=== PATIENT | male | born 1970 | race Caucasian/White ===

== ENCOUNTER 2025-03-19 22:09 | Inpatient (IN) | payer MEDICAID ==
[~2025-03-19] VITALS: Ht 185.4 cm; Wt 67.7 kg
[2025-03-19 22:56] LABS: MEAN PLATELET VOLUME 8.5 FL (7.4-10.4); RED CELL DISTRIBUTION WIDTH 13.4 % (11.5-14.5)
--- NOTE | 2025-03-19 23:01 | RADIOLOGY REPORT ---
CHEST RADIOGRAPH Indication: sepsis Technique: 1 view Comparison: None FINDINGS: Lines and Tubes: None Lungs: No focal consolidation. Pleura: No effusion or pneumothorax. Cardiomediastinal contours: Unremarkable. Other: No acute osseous abnormality. IMPRESSION: 1. No acute cardiopulmonary abnormality.
[2025-03-19 23:05] LABS: CREATININE 1.07 MG/DL (0.60-1.10); TOTAL CARBON DIOXIDE 33.2 MMOL/L (24-32); eCRCL 76 ML/MIN; eGFR 72 ML/MIN
[2025-03-20] VITALS (8 sets, daily range): BP systolic 147–170; BP diastolic 83–106; PULSE 60–88; RESP 14–18; TEMP 97.1–99.1; O2SAT 94–97
--- NOTE | 2025-03-20 04:30 | Physician Documentation ---
History of Present Illness ~ Chief Complaint: Arm Pain Stated Complaint: MULTIPLE MEDICAL COMPLAINTS Time Seen by MD: 03:55 Primary Medical Doctor: LISSA IN [facility] HPI 54-year-old male presenting with right hand and wrist pain and redness. He st ates that it started hurting 2-3 days ago. He is homeless and lives [address]. He is also an IV drug user and states that he often injects into his right wrist and arm. Reports that the pain is worsening. He has also had some subjective fevers and chills. Denies any nausea, vomiting or any other associated symptoms. Medication Reconciliation Allergies: Coded Allergies: No Known Allergies (Unverified , 03/19/25) Miscellaneous Medications Home Med List (No Home Medications), (Reported) Review of Systems All Other Systems at this time: Reviewed and Negative Physical Exam Vital Signs: Temperature: 98.3, Source: Oral, Heart Rate: 99, Respiratory Rate: 18, BP: 154/90, Pulse Oximetry: 97, Weight: 67.700 Oxygen Flow Rate: 0 Physical Exam I have reviewed the triage vitals. CONST: Well developed and well nourished. In no acute distress HENT: Head Atraumatic EYES: Pupils are equal, round and reactive to light. Normal conjunctiva NECK: Normal range of motion. Supple. CARDIO: Normal rate and regular rhythm. No murmurs, rubs, or gallops. S1, S2. PULM/CHEST: No respiratory distress. Lungs clear to auscultation. No wheeze ABD: Soft and nontender. Nondistended. Bowel sounds normal. No guarding. : Exam deferred MSK: Right hand and wrist with erythema ranging from the hand down to the distal forearm. This area is tender to palpation. NEURO: Alert and oriented to person, place and time. Moving all extremities SKIN: Warm and dry. PSYCH: Normal mood and affect. Good eye contact. Progress Results/Orders Results/Orders Medications Received in ER Medications (Trade) Dose Ordered Sig/Maggie Route PRN Reason Start Time Stop Time Status Last Admin Dose Admin (morphine inj.) 4 mg ONCE ONCE IV 03/20/25 04:25 03/20/25 04:34 DC 03/20/25 05:09 4 MG (Zofran 4mg/2ml vial) 4 mg ONCE ONCE IV 03/20/25 04:25 03/20/25 04:34 DC 03/20/25 05:10 4 MG Sodium Chloride 1,000 ml @ 1,000 mls/hr ONCE ONCE IV 03/20/25 04:25 03/20/25 05:24 DC 03/20/25 05:06 1,000 MLS/HR Ceftriaxone Sodium/Dextrose 50 ml @ 100 mls/hr ONCE ONCE IV 03/20/25 04:25 03/20/25 04:54 DC 03/20/25 05:06 100 MLS/HR Vital Signs 03/19/25 03/20/25 03/20/25 03/20/25 22:28 02:06 05:56 06:36 Temp 98.8 98.3 Pulse 109 99 62 Resp 18 18 16 B/P (MAP) 126/96 154/90 (111) 143/87 (105) Pulse Ox 98 97 O2 Flow Rate 0 0 Laboratory Tests Test 03/19/25 22:47 03/20/25 06:45 White Blood Count 12.7 H Red Blood Count 4.76 Hemoglobin 14.0 Hematocrit 41.4 L Mean Corpuscular Volume 87.0 Mean Corpuscular Hemoglobin 29.4 Mean Corpuscular Hemoglobin Concent 33.8 Red Cell Distribution Width 13.4 Platelet Count 253 Mean Platelet Volume 8.5 Neutrophils (%) (Auto) 68.7 Lymphocytes (%) (Auto) 18.4 L Monocytes (%) (Auto) 8.0 Eosinophils (%) (Auto) 4.2 Basophils (%) (Auto) 0.7 Neutrophils # (Auto) 8.7 H Lymphocytes # (Auto) 2.3 Monocytes # (Auto) 1.0 H Eosinophils # (Auto) 0.5 Basophils # (Auto) 0.1 CBC Comment Sodium Level 138 Potassium Level 4.3 Chloride Level 101 Carbon Dioxide Level 33.2 H Anion Gap 4 L Blood Urea Nitrogen 21 H Creatinine 1.07 Estimated GFR/1.73 m2 72 BUN/Creatinine Ratio 19.6 Glucose Level 95 Lactic Acid Level 1.1 Calcium Level 9.1 Albumin 3.7 Procalcitonin < 0.05 Chemistry Comments Urine Specimen Description Non-specified Urine Color Yellow Urine Clarity Clear Urine pH 6.0 Urine Specific [place] 1.025 Urine Protein Trace Urine Glucose (UA) Negative Urine Ketones Negative Urine Occult Blood Negative Urine Nitrite Negative Urine Bilirubin Negative Urine Urobilinogen 1.0 Urine Leukocyte Esterase Negative Urine RBC 0-2 Urine WBC 0-4 Urine Squamous Epithelial Cells None seen Urine Bacteria None seen Urine Mucus Few Urine Culture Indicated Not ind Volume Urine Centrifuged 10 ml Urine Comment Microbiology Date/Time Source Procedure Growth Status 03/19/25 23:10 Blood Arm Left Blood Culture - Preliminary NEGATIVE (LESS THAN 24 HOURS) Resulted Medical Decision Making Findings 54-year-old male who admits to IV drug abuse involving his right upper extremity who presents with cellulitis of the hand. He has got a leukocytosis. He was started on vancomycin in the hospitalist kindly agreed to admit the patient. Departure Disposition: ADMITTED INPATIENT Admission Level of Care: Med/Surg Impression: Primary Impression: Cellulitis of right hand Additional Impression: Leukocytosis Condition: Stable Referrals: NO PRIMARY CARE PROVIDER (PCP) Signature Scribe Signature: . Attestation: . DRE HERRERA MD Mar 20, 2025 04:30 KESHIA ESPINOSA MD Mar 20, 2025 07:51
--- NOTE | 2025-03-20 04:53 | RADIOLOGY REPORT ---
CLINICAL INDICATION: right wrist/hand swelling TECHNIQUE: 2 views right wrist, 2 views right hand DI WRIST,LIMITED (AP/LAT), DI HAND,LIMITED (AP/LAT) Comparison: None FINDINGS/IMPRESSION: : No acute fracture or joint malalignment. Normal osseous mineralization. Ulnar positive variance with mild sclerosis of the proximal lunate subarticular surface, compatible with ulnar impaction. 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 Healed 5th metacarpa l neck deformity. Mild soft tissue prominence about the wrist.
[2025-03-20] MEDS: normal saline 1000ml 1,000 ML IV ONE (05:06)
[2025-03-20] MEDS: CefTRIAXone 2gm/D5W 50ml BAG 50 ML IV ONE (05:06)
[2025-03-20] MEDS: morphine 4 MG/ML inj SYRINge IV ONE (05:09)
[2025-03-20] MEDS: ondansetron/PF 4mg/2ml inj IV ONE (05:10)
[2025-03-20] MEDS ORDERED: CefTRIAXone 2gm/D5W 50ml BAG 50 ML IV ONE (05:15)
[2025-03-20] MEDS ORDERED: NO HOME MEDS (06:44)
[2025-03-20 06:56] LABS: LEUKOCYTE ESTERASE ,URINE NEGATIVE (Neg); NITRITES, URINE NEGATIVE (Neg); OCCULT BLOOD,URINE NEGATIVE (Neg)
[2025-03-20 06:57] LABS: UA COLLECTION TYPE NON-SPECIFIED
[2025-03-20 07:01] LABS: MUCUS STRANDS FEW /LPF (Neg); SQUAMOUS EPITHELIAL CELL,UR NONE SEEN /LPF (FEW)
[2025-03-20] MEDS ORDERED: potassium Cl 20 mEq SR tablet PO PRN ×2 (07:50)
[2025-03-20] MEDS ORDERED: magnesium sulf-water 2g/50mL 50 ML IV PRN (07:50)
[2025-03-20] MEDS ORDERED: vancomycin inj 1,000 MG in normal saline 250ml IV soln 250 ML IV ONE (07:50)
[2025-03-20] MEDS ORDERED: potassium Cl 40MEQ/1/2NS 520ml 520 ML IV PRN (07:50)
[2025-03-20] MEDS: PERFLUTREN PROTEIN-A MICROSPHR (Optison) 0.22 MG/ML 3ML VIAL IV ONE (07:50)
[2025-03-20] MEDS ORDERED: ondansetron/PF 4mg/2ml inj IV PRN (07:50)
[2025-03-20] MEDS ORDERED: mag hydrox/Alum hydrox/simeth 30ml oral suspension PO PRN (07:50)
[2025-03-20] MEDS ORDERED: magnesium sulf-water 4G/100mL 100 ML IV PRN (07:50)
[2025-03-20] MEDS ORDERED: CefTRIAXone/D5W-Rocephin 1gm 50 ML IV ONE (07:50)
[2025-03-20] MEDS: K and/or MAG REPLACEMENT MC SCH (08:00)
[2025-03-20] MEDS: ipratropium/albuterol 3ml nebule NEB PRN (08:30)
[2025-03-20] MEDS: normal saline 1000ml 1,000 ML IV SCH (10:16)
[2025-03-20] MEDS: vancomycin/NS 1 GM ADD-VANTAGE 250 ML IV SCH ×2 (10:16→12:57)
[2025-03-20] MEDS: docusate sod 100mg capsule PO SCH (10:17)
[2025-03-20] MEDS: nicotine 21mg patch - 24 hr TD ONE (10:39)
[2025-03-20] MEDS ORDERED: SULF1TAB45 PO (14:27)
[2025-03-20] MEDS ORDERED: ATOR40TA72 (14:27)
[2025-03-20] MEDS ORDERED: MUPI22OI30 TOP (14:27)
[2025-03-20] MEDS ORDERED: ALBU10.7 (14:27)
[2025-03-20] MEDS ORDERED: LOSA25TA41 PO (14:27)
[2025-03-20] MEDS ORDERED: METH-603 PO (14:32)
[2025-03-20] MEDS: methadone 10mg tablet PO SCH (14:39)
[2025-03-20] MEDS: hydrALAZINE 20mg/ml inj. IV PRN (17:51)
--- NOTE | 2025-03-20 18:12 | HISTORY AND PHYSICAL ---
History & Physical Providers to CC ~ History of Present Illness Reason for Admit\Complaint: Cellulitis of the right hand/ IV drug use disorder History of Present Illness This is a 54-year-old male who presents to ED with redness and pain of his right hand and wrist times. Three days the patient is an IV methamphetamine user and often injects in his right wrist and arm. The patient has states he is also withdrawing from fentanyl for which he smokes the patient has a mildly elevated white blood cell count is echocardiogram was negative for any valvular vegetations. The patient is admitted to surgery floor. Allergies: Coded Allergies: No Known Allergies (Unverified , 03/19/25) Home Medications Home Medications Active Reported Dolophine* (Methadone HCl) 10 Mg Tablet 70 Mg PO DAILY Airsupra 90-80 Mcg Inhaler (Albuterol Sulfate/Budesonide) 90 Mcg-80 Mcg/Actuation Hfa.aer.ad Septra Ds Tab (Trimethoprim/Sulfamethoxazole) 800 Mg/160 Mg Tablet 1 Tab PO BID Bactroban* (Mupirocin) 22 Gm Tube 1 Applic TOP TID Atorvastatin Calcium 40 Mg Tablet Losartan Potassium 25 Mg Tablet 1 Tab PO DAILY No Home Medications (Home Med List) Each Past Medical History Past Medical History COPD, hepatitis-C Past Surgical History Surgical History Comment No prior surgeries Family History Family History: FH: heart disease MOTHER, , Age: 49, Cause: Emphysema lung Past Social History Social History Comment Smokes a pack of cigarettes a day, does not drink alcohol, injects methamphetamines, and smokes fentanyl ROS ROS Except for positives in the HPI the rest of the 14 point review systems is negative Exam Vitals: Vital Signs Date Time Temp Pulse Resp B/P (MAP) Pulse Ox O2 Delivery O2 Flow Rate FiO2 03/20/25 17:51 75 03/20/25 17:44 170/106 (127) 03/20/25 13:03 16 Room Air 03/20/25 11:00 97.1 97 03/20/25 10:51 0 03/20/25 08:37 21 General: Gen. No acute distress alert and oriented 4 Lungs clear to ascultation bilaterally, no wheezes rales or rhonchi appreciated Heart normal sinus rhythm no murmurs rubs or clicks noted Abdomen soft nontender bowel sounds are normoactive Lower extremities no clubbing cyanosis, nor edema appreciated bilaterally Skin mild erythema and edema to the right hand and wrist was mild streaking proximally and a linear fashion Diagnostic Data Last Recorded Lab Results: 03/19/25224603/19/252246 Advance Care Planning Advanced Care plannin - 30 Minutes Problems: (1) Cellulitis of right hand Status: Acute Additional Plan # cellulitis of the right upper extremity # IV methamphetamine use disorder IV Rocephin IV vancomycin No imaging of the upper extremities ordered other than x-ray of the hand and wrist since her is a very low likelihood of an abscess or osteomyelitis. Blood cultures are ordered Substance use navigator Narcisa Sair consult is ordered PRN p.o. lorazepam # fentanyl use disorder Continue methadone Substance use navigator Narcisa Sair consult is ordered # tobacco use disorder Nicotine patch is ordered We will talk about smoking cessation tomorrow # DVT prophylaxis SCDs SQ Lovenox I spent a total of 18 minutes on reviewing various resuscitative measures/ ACP with the patient at the time of admission. The patient has decided on a full code status. Date of Service: Mar 20, 2025 Billing Provider: JERRY PRIETO DO Common Visit Codes: 55601-WYVBXRP INP/OBS CARE (HIGH) Secondary Visit Codes: 25721-VMDHQPVI CARE PLAN 30 MINUTES JERRY PRIETO DO Mar 20, 2025 18:12
[2025-03-20] MEDS: HYDROmorphone inj. 0.5 MG/0.5 ML DISP.SYRIN IV PRN (19:00)
[2025-03-20] MEDS: enoxaparin 40mg/0.4ml syringe SQ SCH (19:01)
[2025-03-21] VITALS (8 sets, daily range): BP systolic 144–193; BP diastolic 83–109; PULSE 60–91; RESP 14–18; TEMP 97.6–98.7; O2SAT 96–98
[2025-03-21] MEDS: haloperidol lactate 5mg/ml inj IM ONE (01:58)
[2025-03-21 05:34] LABS: MEAN PLATELET VOLUME 9.2 FL (7.4-10.4); RED CELL DISTRIBUTION WIDTH 13.6 % (11.5-14.5)
[2025-03-21 06:01] LABS: CREATININE 0.65 MG/DL (0.60-1.10); TOTAL CARBON DIOXIDE 22.1 MMOL/L (24-32); eCRCL 124 ML/MIN; eGFR > 90 ML/MIN
[2025-03-21] MEDS: methadone 10mg tablet PO SCH (07:07)
[2025-03-21] MEDS: nicotine 21mg patch - 24 hr TD SCH (07:08)
[2025-03-21] MEDS: CefTRIAXone/D5W-Rocephin 1gm 50 ML IV SCH (07:08)
--- NOTE | 2025-03-21 09:46 | CARDIOLOGY REPORT ---
APPROVED REPORT EXAM: Comprehensive 2D, Doppler, and color-flow Echocardiogram. Patient Location: 349B Blood Pressure: 169/110 mmHg Heart Rate: 90 bpm Rhythm: NSR Indications ENDOCARDITIS MRSA HYPERTENSION EXTRUSION BENDER: None. PRIOR ECHOCARDIOGRAM: None. 2D Dimensions RVDd 3.2 cm IVSd 0.8 (0.7-1.1cm) LVDd 5.1 cm PWd 0.9 (0.7-1.1cm) IVSs 1.3 (0.8-1.2cm) LVDs 3.4 (2.5-4.0cm) PWs 1.1 (0.8-1.2cm) LVOT Diameter 2.01 (1.8-2.4cm) LVEF(%) 60.0 (>50%) FS (%) 32.1 % SV 72.8 ml CO 6.0 L/min M-Mode Dimensions Left Atrium(MM) 3.15 (2.5-4.0cm) Aortic Root 3.44 (2.2-3.7cm) Aortic Cusp Exc 1.83 (1.5-2.0cm) Aortic Valve AoV Peak Manoj. 174.0 cm/s AoV VTI 34.3 cm AO Peak GR. 12.1 mmHg AO Mean GR. 6 mmHg LVOT VTI 22.16 cm LVOT Peak Manoj. 114.8 cm/s JAYDEN (VTI) 2.05 cm2 Mitral Valve MV E Velocity 68.4 cm/s MV Peak Gr. 2 mmHg MV A Velocity 96.2 cm/s MV PHT 72 ms E/A Ratio 0.7 MVA (PHT) 3.06 cm2 MV VMax77.8 cm/s LEFT VENTRICLE Normal LV size and wall thickness. Overall systolic function is normal. LVEF is 55-60%. RIGHT VENTRICLE RV is normal size and function. ATRIA The left atrium size is normal. The right atrium size is normal. AORTIC VALVE Trileaflet AV appears mildly sclerotic without stenosis. No insufficiency. MITRAL VALVE Mitral valve leaflets are mildly thickened without stenosis. No regurgitation. PULMONIC VALVE TV appears structurally normal with no regurgitation. GREAT VESSELS The aortic root is normal in size. PERICARDIUM Normal pericardium. No effusion. Other Information Study Quality: Adequate Conclusion Normal LV size and wall thickness. Overall systolic function is normal. LVEF is 55-60%. RV is normal size and function. The left atrium size is normal. Trileaflet AV appears mildly sclerotic without stenosis. No insufficiency. Mitral valve leaflets are mildly thickened without stenosis. No regurgitation. TV appears structurally normal with no regurgitation. Normal pericardium. No effusion.
[2025-03-21] MEDS ORDERED: haloperidol lactate 5mg/ml inj IM PRN (10:40)
--- NOTE | 2025-03-21 10:53 | PROGRESS NOTE ---
Daily Progress Note Providers to CC ~ Antibiotic Timeout Antibiotic Ordered?: Yes Subjective The patient's right hand is erythema and edema as well as a lymphangitis has improved. the patient's blood pressure is elevated part of this may be secondary to withdrawal from methamphetamines I have ordered PRN lorazepam the patient also got agitated last evening and was given IM Haldol Objective Vital Signs Date Time Temp Pulse Resp B/P (MAP) Pulse Ox O2 Delivery O2 Flow Rate FiO2 03/21/25 10:18 16 03/21/25 07:07 69 03/21/25 06:38 98.6 157/83 (107) 97 Room Air 03/20/25 20:00 0 21 Result Diagram: 03/21/258 03/21/258 Gen. No acute distress alert and oriented 4 Lungs clear to ascultation bilaterally, no wheezes rales or rhonchi appreciated Heart normal sinus rhythm no murmurs rubs or clicks noted Abdomen soft nontender bowel sounds are normoactive Lower extremities no clubbing cyanosis, nor edema appreciated bilaterally Skin mild erythema and edema to the right hand and wrist was mild streaking proximally and a linear fashion Problem\Assessment\Plan Problems/Diagnosis: (1) Cellulitis of right hand # cellulitis of the right upper extremity # IV methamphetamine use disorder IV Rocephin IV vancomycin No imaging of the upper extremities ordered other than x-ray of the hand and wrist since her is a very low likelihood of an abscess or osteomyelitis. Blood cultures are ordered Substance use navigator Narcisa Sair consult is ordered PRN p.o. lorazepam 03/21 erythema and edema is improving of the right hand The patient appears to be going through methamphetamine withdrawal was agitated last evening received IM Haldol and did well IM Haldol PRN and lorazepam PRN agitation # elevated blood pressure Likely multifactorial including agitation from methamphetamine withdrawal as well as possible underlining hypertension Trial of lorazepam On IV hydralazine PRN # fentanyl use disorder Continue methadone Substance use navigator Narcisa Sair consult is ordered # tobacco use disorder Nicotine patch is ordered We will talk about smoking cessation tomorrow # DVT prophylaxis SCDs SQ Lovenox Date of Service: Mar 21, 2025 Billing Provider: JERRY PRIETO DO Common Visit Codes: [id number] INP/OBS CARE(HIGH) JERRY PRIETO DO Mar 21, 2025 10:53
[2025-03-21] MEDS: VANCOMYCIN LEVEL IV ONE (22:30)
[2025-03-22 06:55] VITALS: BP 139/95; PULSE 79; RESP 16; TEMP 98; O2SAT 97
[2025-03-22] MEDS: methadone 10mg tablet PO SCH (07:42)
[2025-03-22 08:00] VITALS: RESP 16
[2025-03-22] MEDS ORDERED: CEFD300C3 PO (10:48)
[2025-03-22] MEDS ORDERED: ALBU10.7 INH (10:48)
[2025-03-22] MEDS ORDERED: NICO-687 TD (10:48)
--- NOTE | 2025-03-22 11:05 | DISCHARGE SUMMARY ---
Discharge Summary Providers to CC ~ Discharge Summary Admission Diagnosis: right uex cellulitis Hospital Course DATE OF ADMISSION: 03/20/2025 DATE OF DISCHARGE: 03/22/2025 Discharge Diagnosis\Comment: Cellulitis of the right hand, IV methamphetamines use disorder, fentanyl use disorder, tobacco use disorder, hypertension Operations\Procedures: None Consultants: None Complications: None Condition on DC: Stable New Medications: Cefdinir* (Cefdinir*) 300 Mg Capsule 1 CAP PO Q12H, #10 CAP Nicotine 21 MG Patch* (Habitrol 21 MG Patch*) 1 Each Patch.td24 1 PATCH TD DAILY, #28 PATCH Do not smoke while on a nicotine patch this can cause your blood pressure to markedly elevate and cause you to have a stroke Changed Medications: Albuterol Sulfate/Budesonide (Airsupra 90-80 Mcg Inhaler) 90 Mcg-80 Mcg/Actuation Hfa.aer.ad 2 PUFFS INH BID, #1 INHALER (Medication details modified) Continued Medications: Atorvastatin Calcium (Atorvastatin Calcium) 40 Mg Tablet Losartan Potassium (Losartan Potassium) 25 Mg Tablet 1 TAB PO DAILY Methadone Hcl* (Dolophine*) 10 Mg Tablet 70 MG PO DAILY, TAB NS Mupirocin* (Bactroban*) 22 Gm Tube 1 APPLIC TOP TID Discontinued Medications: Home Med List (No Home Medications) Each Sulfamethoxazole/Trimethoprim (Septra Ds Tab) 800 Mg/160 Mg Tablet 1 TAB PO BID Discharge Summary: I admitted Mr. Linares with the following HPI:This is a 54-year-old male who presents to ED with redness and pain of his right hand and wrist times. Three days the patient is an IV methamphetamine user and often injects in his right wrist and arm. The patient has states he is also withdrawing from fentanyl for which he smokes the patient has a mildly elevated white blood cell count is echocardiogram was negative for any valvular vegetations. The patient is admitted to surgery floor. The the patient is white blood cell count improved from 12,700-11,300 the patient was afebrile during hospitalization. The patient has cellulitis was essentially resolved on the morning of the and the patient was discharged with a prescription for cefdinir 300 mg b.i.d. for additional five days with recommendations to obtain a probiotic to avoid C difficile enterocolitis. The patient was given a nicotine patch during hospitalization and on the day discharge I spoke to the patient about Tobacco abuse-I spent 12 minutes discussing smoking cessation with the patient including the risk of continuing smoke: Lung cancer, stroke, heart attack, poor wound healing, risk of MRSA skin infections. The expense of smoking cigarettes and how cigarettes have been scientifically engineered to be as addictive as humanly possible. The patient was recommended not to smoke while on a nicotine patch as this could markedly raises blood pressure and you could have a stroke. The patient has underlining hypertension his blood pressure was markedly elevated on the IV hydralazine was given however this improved and by the morning of the his blood pressure was 139/95. The patient is to continues lisinopril the patient was agitated the previous is stay and methamphetamine withdrawal was highly likely a contributing factor to the patient's markedly elevated blood pressure. Patient states that he does have issues with breathing in his out of his inhaler on the morning of discharge the patient did have coarse breath sounds however his oxygen saturation was in the mid-to-high 90s on room air I did discharge the patient with the renewal of his airspura inhaler Gen. No acute distress alert and oriented 4 Lungs coarse breath sounds scattered in all listening [place]. Heart normal sinus rhythm no murmurs rubs or clicks noted Abdomen soft nontender bowel sounds are normoactive Lower extremities no clubbing cyanosis, nor edema appreciated bilaterally The patient felt ready to be discharged and was medically cleared to be discharged on 03/22/2025 The patient was seen and evaluated on day of discharge. Time spent on discharge 35 minutes *Problems/Diagnosis: (1) Cellulitis of right hand Status: Acute Total Time Spent on D/C: > 30 Minutes Date of Service: Mar 22, 2025 Billing Provider: JERRY PRIETO DO Common Visit Codes: 26798-IDX/OBS DISCH DAY >30min Secondary Visit Codes: 64550-[id number] CHNG SMOKING >10MIN JERRY PRIETO DO Mar 22, 2025 11:04
[2025-03-22 12:16] VITALS: BP 140/106; PULSE 69; RESP 16; TEMP 97.4; O2SAT 95
== END 2025-03-22 12:45 | disposition home or self-care (01) | DRG 383 ==
LOC: ER 22:10 → ED HOLD 03-20 07:55 → SUR 3N 03-20 11:04
PROVIDERS: ADMIT Family Medicine; ATTEND Family Medicine
DX: L03.113 Cellulitis of right upper limb (principal); F15.10 Other stimulant abuse, uncomplicated; F17.210 Nicotine dependence, cigarettes, uncomplicated; I10 Essential (primary) hypertension; J44.9 Chronic obstructive pulmonary disease, unspecified; Z79.899 Other long term (current) drug therapy; Z82.5 Family history of asthma and other chronic lower respiratory diseases
CPT/HCPCS: 36415; 71045; 73100; 73120; 80048; 80053; 80202; 81001; 83605; 83735; 84145; 85025; 87040; 93306; 94640; 94760; 96365; 96375; 99285; G0378; J0360; J0696; J1171; J1630; J1650; J2270; J2405; J3373; J7030; J7040